=== PATIENT | female | born 1970 ===

== ENCOUNTER 2017-03-29 16:10 | Emergency (ER) | payer MEDICARE ==
[2017-03-29] MEDS ORDERED: Albuterol-Ipratrop 3 mg / 0.5 (3 ml) UD IH STA ×2 (16:39→18:01)
[2017-03-29] MEDS ORDERED: Albuterol-Ipratrop 3 mg / 0.5 (3 ml) UD ONE ×2 (16:50→18:27)
--- NOTE | 2017-03-29 16:50 | ED PDOC ---
HPI: General Adult Time Seen by Provider: 03/29/17 16:23 Chief Complaint (Nursing): Shortness Of Breath Chief Complaint (Provider): Shortness of Breath History Per: Patient Onset/Duration Of Symptoms: Days (x 4) Current Symptoms Are (Timing): Still Present Additional Complaint(s): Saundra is a 47 year old female with a past medical history of arthritis, CVA, and fibromyalgia was was brought by EMS to the Emergency Department. Patient states she was referred by [facility] to come to ED for further evaluation. Patient states she has cough congestion, shortness of breath as well as sore throat, fever, body aches, and difficulty swallowing for 3 days. PMD: Neil Hou Past Medical History Reviewed: Historical Data, Nursing Documentation, Vital Signs Vital Signs: Last Vital Signs Temp Pulse Resp 18 03/29/17 17:22 BP Pulse Ox - Medical History PMH: No Chronic Diseases, Arthritis, CVA, Fibromyalgia - Surgical History Other surgeries: Hysterectomy - Family History Family History: States: Unknown Family Hx - Home Medications Home Medications: Ambulatory Orders Medication Instructions Recorded Albuterol 0.083% [Albuterol 3 ml IH Q8 #1 neb 03/29/17 Sulfate 3 Ml] Albuterol HFA [Ventolin HFA 90 2 puff IH Q4H #1 puff 03/29/17 mcg/actuation (8 g)] Albuterol HFA [Ventolin HFA 90 2 puff IH Q6H PRN 03/29/17 mcg/actuation (8 g)] Atorvastatin [Lipitor] 20 mg PO DAILY 03/29/17 Azithromycin [Zithromax] 500 mg PO DAILY #6 tab 03/29/17 Clopidogrel [Plavix] 75 mg PO DAILY 03/29/17 DULoxetine [Cymbalta] 30 mg PO DAILY 03/29/17 Folic Acid [Folic Acid] 1 mg PO DAILY 03/29/17 Ipratropium [place] [Ipratropium 2 spray FLORENCIA Q12H PRN 03/29/17 [place]] Methotrexate [Methotrexate] 7.5 mg PO SUN 03/29/17 Multivitamin [Multi-Vitamin Daily] 1 tab PO DAILY 03/29/17 Non-Formulary 1 ea .ROUTE Q6 #1 ea 03/29/17 Nortriptyline HCl [Pamelor] 75 mg PO HS 03/29/17 Pantoprazole Sodium [Protonix] 40 mg PO DAILY 03/29/17 Pregabalin [Lyrica] 200 mg PO TID 03/29/17 Temazepam [Restoril] 30 mg PO HS 03/29/17 Topiramate [Topamax] 100 mg PO Q12H 03/29/17 clonazePAM [Klonopin] 0.5 mg PO Q12H 03/29/17 diltiaZEM [Cardizem] 120 mg PO DAILY 03/29/17 predniSONE [predniSONE Tab] 10 mg PO TID #15 tab 03/29/17 - Allergies Allergies/Adverse Reactions: Allergies Allergy/AdvReac Type Severity Reaction Status Date / Time Penicillins Allergy ANAPHYLAXIS Verified 03/29/17 16:14 Review of Systems ROS Statement: Except As Marked, All Systems Reviewed And Found Negative Constitutional: Positive for: Fever, Other (Body aches) ENT: Positive for: Throat Pain, Other (Difficulty breathing) Respiratory: Positive for: Cough, Shortness of Breath Physical Exam - Reviewed Nursing Documentation Reviewed: Yes Vital Signs Reviewed: Yes - Physical Exam Appears: Positive for: Non-toxic ENT: Positive for: TM Is/Are, Tonsillar Exudate, Other (Throat Erythema) Neck: Positive for: Supple Cardiovascular/Chest: Positive for: Regular Rate, Rhythm Respiratory: Positive for: Rhonchi (Scattered). Negative for: Wheezing, Respiratory Distress Gastrointestinal/Abdominal: Positive for: Soft. Negative for: Distended Extremity: Positive for: Normal ROM (Full). Negative for: Swelling Neurologic/Psych: Positive for: Alert, Oriented - Laboratory Results Result Diagrams: 03/29/17 17:09 03/29/17 17:09 Medical Decision Making Medical Decision Making: Time: 16:39 Initial Plan: - CMP - CBC - Chest X-Ray - Duoneb 3 mg/0.5 mg (3 ml) UD - SoluMedrol 125 mg IVP - Peak Flow Pre/Post Treatment - Influenza A B Scribe Attestation: Documented by Dale Rae, acting as a scribe for Justin Natarajan MD Provider Scribe Attestation: All medical record entries made by the Scribe were at my direction and personally dictated by me. I have reviewed the chart and agree that the record accurately reflects my personal performance of the history, physical exam, medical decision making, and the department course for this patient. I have also personally directed, reviewed, and agree with the discharge instructions and disposition. Disposition - Clinical Impression Clinical Impression: Bronchitis - Patient ED Disposition Is Patient to be Admitted: No Counseled Patient/Family Regarding: Studies Performed, Diagnosis, Need For Followup, Rx Given - Disposition Referrals: [facility] [Outside] Disposition: Routine/Home Disposition Time: 18:26 Condition: FAIR Prescriptions: Albuterol 0.083% [Albuterol Sulfate 3 Ml] 3 ml IH Q8 #1 neb Albuterol HFA [Ventolin HFA 90 mcg/actuation (8 g)] 2 puff IH Q4H #1 puff Azithromycin [Zithromax] 500 mg PO DAILY #6 tab Non-Formulary 1 ea .ROUTE Q6 #1 ea predniSONE [predniSONE Tab] 10 mg PO TID #15 tab Instructions: Acute Bronchitis (ED) Forms: PWA (Nepalese)
[2017-03-29 17:13] LABS: BASO % 0.7 % (0.0-2.0); EOS # 0.1 K/uL (0.0-0.7); EOS % 1.4 % (0.0-4.0); HEMATOCRIT 39.9 % (34.0-47.0); LYMPH # 1.9 K/uL (1.0-4.3); LYMPH % 28.1 % (20.0-40.0); MEAN CELL VOLUME 92.1 fl (81.0-99.0); MEAN CORPUSCULAR HEMOGLOBIN 29.7 pg (27.0-31.0); MEAN CORPUSCULAR HGB CONC 32.3 g/dL (33.0-37.0); MEAN PLATELET VOLUME 9.9 fl (7.2-11.7); MONO # 0.7 K/uL (0.0-0.8); MONO % 10.5 % (0.0-10.0); NEUT % 59.3 % (50.0-75.0); NRBC % 0.1 % (0.0-0.0); RED CELL DISTRIBUTION WIDTH 16.2 % (11.5-14.5); WHITE BLOOD COUNT 6.7 K/uL (4.8-10.8)
[2017-03-29 17:22] LABS: ALB/GLOB RATIO 1.3 (1.0-2.1); ALKALINE PHOSPHATASE 107 U/L (38-126); ALT/SGPT 57 U/L (9-52); AST/SGOT 34 U/L (14-36); BILIRUBIN,TOTAL 0.2 mg/dl (0.2-1.3); BLOOD UREA NITROGEN 19 mg/dl (7-17); CALCIUM 9.6 mg/dL (8.4-10.2); CARBON DIOXIDE 20 mmol/L (22-30); CHLORIDE 113 mmol/L (98-107); GFR AFRICAN-AMERICAN > 60; GLUCOSE,RANDOM 90 mg/dL (65-105); SODIUM 146 mmol/l (132-148); TOTAL PROTEIN 8.1 G/DL (6.3-8.2)
[2017-03-29 17:24] VITALS: RESP 18
--- NOTE | 2017-03-29 17:39 | RAD ---
HISTORY: cough COMPARISON: No prior. TECHNIQUE: Chest PA and lateral FINDINGS: LUNGS: No active pulmonary disease. PLEURA: No significant pleural effusion identified. No pneumothorax apparent. CARDIOVASCULAR: Normal. OSSEOUS STRUCTURES: No significant abnormalities. VISUALIZED UPPER ABDOMEN: Normal. OTHER FINDINGS: None. IMPRESSION: No active disease.
== END 2017-03-29 18:56 | disposition home or self-care (01) ==
LOC: H.ER 16:10
DX: J40 Bronchitis, not specified as acute or chronic (principal); M79.7 Fibromyalgia; R13.10 Dysphagia, unspecified; Z86.73 Personal history of transient ischemic attack (TIA), and cerebral infarction without residual deficits; Z88.0 Allergy status to penicillin
CPT/HCPCS: 71020; 80053; 81025; 85025; 87804; 94150; 94640; 96374; 99284; J2930

== ENCOUNTER 2017-05-28 17:19 | Emergency (ER) | payer MEDICARE ==
[2017-05-28 17:23] VITALS: RESP 20; O2SAT 100
[2017-05-28] MEDS ORDERED: Sodium Chloride 0.9% 1,000 ML IV STA (18:21)
--- NOTE | 2017-05-28 18:44 | ED PDOC ---
HPI: CCC, URI, Sore Throat Chief Complaint (Provider): Ear pain Additional History Per: Patient <Richard Burgos - Last Filed: 05/28/17 19:18> <Katarina Zacarias - Last Filed: 05/28/17 22:44> Time Seen by Provider: 05/28/17 17:32 Chief Complaint (Nursing): ENT Problem Additional Complaint(s): 47 yo female with extensive past medical history sent to ED by PMD for evaluation and treatment of possible mastoiditis. Patient is c/o 2 weeks history of ear pain which progressed to hearing loss , visited PMD, finished her Azithromycin course w/o any improvement. Pain is 10/10, nonradiating, sharp and pulsating in nature, occasionally aggravated by movement and swallowing. Patient denies any fever but associated with nausea, decreased appetite and diarrhea. Patient admits mild dizziness and headache but denies any ear discharge, bleeding, trauma, blurred vision, runny nose, SOB or chest pain. Denies abdominal pain or urinary symptoms. (Richard Burgos) Supervising Attending Note - Supervising Attending Note The Documented history was done by the: Physician Analyst [facility]biology [facility], Attending Physician The documented physical exam was done by the: Physician Analyst Microbiology [facility], Attending Physician - Attestation: I have personally seen and examined this patient.: Yes I have fully participated in the care of the patient.: Yes I have reviewed all pertinent clinical information, including history, physical exam and plan: Yes <Katarina Zacarias - Last Filed: 05/28/17 22:44> Past Medical History - Medical History PMH: Arthritis, Asthma, CVA, Fibromyalgia, Gastritis, GERD, HTN, Kidney Stones, Migraine, Rheumatoid Arthritis, Seizures Denies: COPD - Surgical History Surgical History: Cholecystectomy Other surgeries: hysterectomy - Family History Family History: States: No Known Family Hx - Living Arrangements Living Arrangements: With Family - Social History Current smoker - smoking cessation education provided: No Ex-Smoker (has not smoked in the last 12 months): No Alcohol: None Drugs: Denies <Richard Burgos - Last Filed: 05/28/17 19:18> <Katarina Zacarias - Last Filed: 05/28/17 22:44> Vital Signs: Last Vital Signs Temp 98 F 05/28/17 17:21 Pulse 73 01/12/18 22:11 Resp 20 05/28/17 17:21 BP 103/66 05/28/17 22:11 Pulse Ox 100 05/28/17 19:18 - Home Medications Home Medications: Ambulatory Orders Medication Instructions Recorded Albuterol HFA [Ventolin HFA 90 2 puff INH Q4 PRN 05/28/17 mcg/actuation (8 g)] Atorvastatin [Lipitor] 20 mg PO DAILY 05/28/17 Clopidogrel [Plavix] 75 mg PO DAILY 05/28/17 Folic Acid [Folic Acid] 1 mg PO DAILY 05/28/17 Meloxicam [Mobic] 7.5 mg PO DAILY 05/28/17 Methotrexate [Xatmep] 2.5 mg PO QWK 05/28/17 Ondansetron ODT [Zofran ODT] 1 odt PO Q6 PRN #20 odt 05/28/17 Pantoprazole Sodium [Protonix] 40 mg PO DAILY 05/28/17 Prednisone 50 mg PO DAILY #4 tablet 05/28/17 Primidone [Mysoline] 50 mg PO HS 05/28/17 Topiramate [Topamax] 150 mg PO BID 05/28/17 - Allergies Allergies/Adverse Reactions: Allergies Allergy/AdvReac Type Severity Reaction Status Date / Time Penicillins Allergy ANAPHYLAXIS Verified 03/29/17 16:14 Curb-65 Severity Score - CURB-65 Severity Score Confusion: No Bun >19mg/dl (>7mmol/L): No Respiratory Rate greater than/equal to 30: No Systolic BP <90 or Diastolic BP less than/equal 60mmHg: No Age >64: No Curb-65 Score: 0 Percentage 30-day mortality: 0.6% <Richard Burgos - Last Filed: 05/28/17 19:18> Review of Systems Constitutional: Negative for: Fever, Chills Eyes: Negative for: Vision Change, Eyelid Inflammation, Redness ENT: Positive for: Ear Pain. Negative for: Ear Discharge, Nose Pain, Nose Discharge Cardiovascular: Negative for: Chest Pain, Palpitations Respiratory: Negative for: Shortness of Breath Gastrointestinal: Positive for: Nausea, Diarrhea. Negative for: Vomiting, Abdominal Pain Genitourinary Female: Negative for: Dysuria Musculoskeletal: Negative for: Neck Pain Skin: Negative for: Rash Neurological: Negative for: Weakness, Numbness <Richard Burgos - Last Filed: 05/28/17 19:18> Physical Exam - Reviewed Nursing Documentation Reviewed: Yes Vital Signs Reviewed: Yes - Physical Exam Appears: Positive for: Uncomfortable Head Exam: Positive for: ATRAUMATIC, NORMAL INSPECTION, NORMOCEPHALIC Skin: Positive for: Normal Color Eye Exam: Positive for: Normal appearance, EOMI ENT: Positive for: TM Is/Are (B/l external exam unremarkable, Right ear mild erythema noted w/o any discharge or acute changes). Negative for: Sinus Pain/ Drainage Neck: Positive for: Normal Cardiovascular/Chest: Positive for: Regular Rate, Rhythm Respiratory: Positive for: Normal Breath Sounds Gastrointestinal/Abdominal: Positive for: Normal Exam Back: Positive for: Normal Inspection Neurologic/Psych: Positive for: Alert, target network analyst II-XII, Oriented <Richard Burgos - Last Filed: 05/28/17 19:18> - ECG O2 Sat by Pulse Oximetry: 100 <Richard Burgos - Last Filed: 05/28/17 19:18> - Laboratory Results Result Diagrams: 05/28/17 19:13 05/28/17 19:30 <Katarina Zacarias - Last Filed: 05/28/17 22:44> - Progress ED Course And Treament: 47 y/o female with right ear pain, possible mastoiditis - CT mastoid W/ cont - CMP, CBC, ESR, Retic, Bcx - IVF - Toradol 15mg IV - Zofran 4mg IV - Reevaluation Case discussed with Dr. Zacarias Patient is waiting for labs and CT. Will transfer car to Dr. Zacarias (Richard Burgos) Medical Decision Making <Richard Burgos - Last Filed: 05/28/17 19:18> <Katarina Zacarias - Last Filed: 05/28/17 22:44> Medical Decision Making: Right ear pain, possible mastoiditis (Richard Burgos) Accession No. : [id number] Patient Name / ID : HERNAN SEARS / [id number] Exam Date : 05/28/2017 20:29:57 ( Approved ) Study Comment : Sex / Age : F / 47Y Creator : Eleanor Bone Dictator : [employer] Developer : Door Assembler : Eleanor Bone Approver2 : Report Date : 05/28/2017 22:22:00 My Comment : [facility] Division of Radiology [address] [address] Tel. no. Patient Name: RENU BECERRA Pt. Address: [address] [place] [address] Rec #: [id number] [place] [address]: Rell OREILLY, Katarina Richardson Pt CELL Order Location: [facility] : 1970 Female Age: 47 Order #: [id number] Reason for exam: possible mastoiditis RIGHT ear CT Scan MASTOID W/ CONTRAST Exam Date: 05/28/17 This imaging exam was performed at [facility] EXAM: CT Orbits, Sella, Posterior Fossa or Auditory System Intravenous Contrast EXAM DATE/TIME: 05/28/2017 6:19 PM CLINICAL HISTORY: 47 years old, female; Pain; Other: Rt ear; Additional info: Possible mastoiditis right ear TECHNIQUE: Axial computed tomography images of the orbits, sella, posterior fossa or auditory system with intravenous contrast. All CT scans at this facility use one or more dose reduction techniques, viz.: automated exposure control; ma/kV adjustment per patient size (including targeted exams where dose is matched to indication; i.e. head); or iterative reconstruction technique. Coronal and sagittal reformatted images were created and reviewed. CONTRAST: 80 mL of [id number] administered intravenously. COMPARISON: No relevant prior studies available. FINDINGS: There is no significant fluid in the sinuses or mastoid air cells. There is no significant fluid in the auditory canals. The soft tissues appear normal. No abscess formation. The visualized portions of the brain parenchyma appear normal. The osseous structures are intact. IMPRESSION: No acute findings. Dictated By: Eleanor Bone MD Dictated Date/Time: 05/28/172221 Signed By: Eleanor Bone MD Date Signed: 2221 Transcribed By: MISAEL Transcribe Date/Time : 05/28/172221 [id number] Labs unremarkable. DW pt findings. Pt reports that the pain improved slightly, hearing loss persists. Headache milder. Also reporting cough and rhinorrhea that started last night, triggering her asthma. Pt stable for dc with follow up ENT. Will rx steroid and zofran and tamiflu. (Katarina Zacarias) Disposition - Patient ED Disposition Is Patient to be Admitted: Transfer of Care (Dr. Zacarias) - Disposition Disposition Time: 19:17 <Richard Burgos - Last Filed: 05/28/17 19:18> Counseled Patient/Family Regarding: Studies Performed, Diagnosis, Need For Followup, Rx Given - Disposition Disposition: Routine/Home <Katarina Zacarias - Last Filed: 05/28/17 22:44> - Clinical Impression Clinical Impression: Right ear pain - Disposition Referrals: Robert Dimas MD [Staff Provider] - (CALL TOMORROW TO SCHEDULE FOLLOWUP APPOINTMENT BY EARLY NEXT WEEK) Condition: STABLE Prescriptions: Ondansetron ODT [Zofran ODT] 1 odt PO Q6 PRN #20 odt PRN Reason: Nausea/Vomiting Prednisone 50 mg PO DAILY #4 tablet Instructions: Earache (ED)
[2017-05-28 19:21] LABS: BASO # 0.1 K/uL (0.0-0.2); BASO % 0.8 % (0.0-2.0); EOS % 0.2 % (0.0-4.0); HEMOGLOBIN 13.3 g/dL (12.0-16.0); LYMPH # 1.8 K/uL (1.0-4.3); LYMPH % 29.3 % (20.0-40.0); MEAN CELL VOLUME 93.1 fl (81.0-99.0); MEAN CORPUSCULAR HEMOGLOBIN 30.3 pg (27.0-31.0); MEAN CORPUSCULAR HGB CONC 32.5 g/dL (33.0-37.0); MEAN PLATELET VOLUME 10.2 fl (7.2-11.7); MONO # 0.5 K/uL (0.0-0.8); MONO % 8.7 % (0.0-10.0); NEUT # 3.8 K/uL (1.8-7.0); NRBC % 0.1 % (0.0-0.0); RBC 4.4 Mil/uL (3.80-5.20); RED CELL DISTRIBUTION WIDTH 15.8 % (11.5-14.5); WHITE BLOOD COUNT 6.2 K/uL (4.8-10.8)
[2017-05-28 20:07] LABS: ALB/GLOB RATIO 1.4 (1.0-2.1); ALBUMIN 4.3 g/dL (3.5-5.0); ALT/SGPT 33 U/L (9-52); AST/SGOT 20 U/L (14-36); BLOOD UREA NITROGEN 21 mg/dl (7-17); CALCIUM 9.6 mg/dL (8.4-10.2); GFR AFRICAN-AMERICAN > 60; GFR NON-AFRICAN AMERICAN > 60
[2017-05-28] MEDS ORDERED: Sodium Chloride 0.9% 50 ML IV ONE (20:27)
[2017-05-28] MEDS ORDERED: Iohexol 300 100 ML IJ ONE (20:27)
[2017-05-28 22:11] VITALS: BP 103/66; PULSE 73
--- NOTE | 2017-05-28 22:22 | CT ---
EXAM: CT Orbits, Sella, Posterior Fossa or Auditory System Intravenous Contrast EXAM DATE/TIME: 05/28/2017 6:19 PM CLINICAL HISTORY: 47 years old, female; Pain; Other: Rt ear; Additional info: Possible mastoiditis right ear TECHNIQUE: Axial computed tomography images of the orbits, sella, posterior fossa or auditory system with intravenous contrast. All CT scans at this facility use one or more dose reduction techniques, viz.: automated exposure control; ma/kV adjustment per patient size (including targeted exams where dose is matched to indication; i.e. head); or iterative reconstruction technique. Coronal and sagittal reformatted images were created and reviewed. CONTRAST: 80 mL of [id number] administered intravenously. COMPARISON: No relevant prior studies available. FINDINGS: There is no significant fluid in the sinuses or mastoid air cells. There is no significant fluid in the auditory canals. The soft tissues appear normal. No abscess formation. The visualized portions of the brain parenchyma appear normal. The osseous structures are intact. IMPRESSION: No acute findings.
[2017-05-28] MEDS ORDERED: Albuterol-Ipratrop 3 mg / 0.5 (3 ml) UD INH STA (22:35)
[2017-05-28] MEDS ORDERED: Albuterol-Ipratrop 3 mg / 0.5 (3 ml) UD ONE (22:52)
[2017-05-28 23:36] VITALS: TEMP 97.8
== END 2017-05-28 23:44 | disposition home or self-care (01) ==
LOC: H.ER 17:19
DX: H92.01 Otalgia, right ear (principal); I10 Essential (primary) hypertension; J45.909 Unspecified asthma, uncomplicated; M06.9 Rheumatoid arthritis, unspecified; Z86.73 Personal history of transient ischemic attack (TIA), and cerebral infarction without residual deficits; Z87.891 Personal history of nicotine dependence; Z87.442 Personal history of urinary calculi; Z88.0 Allergy status to penicillin; Z90.710 Acquired absence of both cervix and uterus
CPT/HCPCS: 70481; 80053; 85025; 85044; 85651; 87040; 94150; 94640; 96361; 96374; 96375; 99284; J1885; J2405; J2930; J7040; Q9967